=== PATIENT | male | born 1970 | race Caucasian/White ===

== ENCOUNTER 2021-11-13 11:16 | Emergency (ER) | payer MEDICAID ==
[~2021-11-13] VITALS: Ht 165.1 cm; Wt 81.6 kg
--- NOTE | 2021-11-13 12:13 | NUR ---
DR RESTREPO AT BEDSIDE FOR EVAL.
[2021-11-13] MEDS ORDERED: ONDANSETRON HCL/PF 4 MG/2 ML VIAL ONE (12:17)
[2021-11-13] MEDS ORDERED: MORPHINE SULFATE INJ 4 MG/ML DISP.SYRIN ONE (12:18)
--- NOTE | 2021-11-13 12:27 | NUR ---
RADIOLOGY PAGED TO TAKE X-RAY.
[2021-11-13] MEDS ORDERED: ONDANSETRON HCL/PF - ER 4 MG/2 ML VIAL IM ONE (12:30)
[2021-11-13] MEDS ORDERED: LIDOCAINE 1%-EPI 1:100,000 20 ML VIAL TP ONE (12:30)
[2021-11-13] MEDS ORDERED: TDAP [DIPH/PERTUSSIS/TET] 0.5 ML VIAL IM ONE ×2 (12:30→13:53)
[2021-11-13] MEDS ORDERED: MORPHINE SULFATE INJ 2 MG/ML DISP.SYRIN IM ONE (12:30)
--- NOTE | 2021-11-13 13:00 | NUR ---
AT BEDSIDE FOR SUTURING.
[2021-11-13] MEDS ORDERED: CLIN300C12 PO (13:52)
[2021-11-13] MEDS ORDERED: IBUP-1957 PO (13:52)
[2021-11-13 13:59] VITALS: BP 132/84
--- NOTE | 2021-11-13 13:59 | NUR ---
Patient discharged to home in stable condition. Written and verbal after care instructions given. Patient verbalizes understanding of instruction.
== END 2021-11-13 14:00 | disposition home or self-care (01) ==
LOC: ER 11:24
DX: S61.411A Laceration without foreign body of right hand, initial encounter (principal); E11.9 Type 2 diabetes mellitus without complications; Z88.0 Allergy status to penicillin; Z79.1 Long term (current) use of non-steroidal anti-inflammatories (NSAID); Z79.899 Other long term (current) drug therapy; X58.XXXA Exposure to other specified factors, initial encounter; Y93.89 Activity, other specified; Y92.89 Other specified places as the place of occurrence of the external cause; Y99.0 Civilian activity done for income or pay
CPT/HCPCS: 12002; 73130; 90471; 90715; 96372; 99284; A4217; A6403; J2270; J2405 ×2